=== PATIENT | female | born 1970 | race American Indian/Alaskan Native ===

== ENCOUNTER 2017-12-16 09:50 | Emergency (ER) | payer SELFPAY ==
[2017-12-16] MEDS ORDERED: NACL 0.9% 1000 ML 1,000 ML IV ONE (11:41)
[2017-12-16] MEDS ORDERED: MORPHINE IV ONE (11:41)
--- NOTE | 2017-12-16 11:45 | Emergency Department Report ---
Chief Complaint: Nausea/Vomiting/Diarrhea Stated Complaint: DIZZINES/VOMITING Time Seen by Provider: 12/16/17 11:13 - HPI History of Present Illness: 47-year-old -Serbian female presents to the emergency department with the complaint of nausea, vomiting, dizziness and elevated blood pressure. She says that her blood pressure this morning was about systolic 190. Most of the symptoms started last night. The patient also says that she has a history of sickle cell disease, not trait, and that she is having a pain crisis. She does not have any insurance and therefore says she does not have a primary care physician or any human resources compensation analyst. She has not taken anything for her symptoms prior to presentation. No recent travel or sick contacts at home. - ROS Review of Systems: Positive for nausea, vomiting, dizziness, body aches, cough Negative for fever, chest pain - Exam Vital Signs: Vital Signs 12/16/17 09:57 Temperature 97.6 F Pulse Rate 72 Respiratory 18 Rate Blood Pressure 162/101 O2 Sat by Pulse 100 Oximetry Physical Exam: Heart and lungs sounds are normal in auscultation. Patient is awake and alert in no acute distress. Cranial nerves II through XII grossly intact. MSE screening note: Focused history and physical exam performed. Due to findings the following was ordered: I have ordered a CBC, CMP, lipase, reticulocyte count. The patient will have a CT scan of the head without contrast. We'll place an IV and the patient will be given fluid and pain medication. ED Disposition for MSE Condition: Stable Referrals: PRIMARY CARE [Primary Care Provider] - 3-5 Days
[2017-12-16 12:12] LABS: Basophils % (Auto) 0.7 % (0.0-1.8); Eosinophils % (Auto) 0.4 % (0.0-4.3); Hematocrit 34.2 % (30.3-42.9); Lymphocytes # (Auto) 0.8 K/mm3 (1.2-5.4); Lymphocytes % (Auto) 11.2 % (13.4-35.0); Mean Corpuscular HGB Conc 35 % (30-34); Mean Corpuscular Hemoglobin 27 pg (28-32); Mean Corpuscular Volume 77 fl (79-97); Monocytes # (Auto) 0.3 K/mm3 (0.0-0.8); Monocytes % (Auto) 4.8 % (0.0-7.3); Platelet Count 128 K/mm3 (140-440); Red Blood Count 4.45 M/mm3 (3.65-5.03); Red Cell Distribution Width 18.9 % (13.2-15.2)
[2017-12-16 12:18] LABS: Alanine Aminotransferase 17 units/L (7-56); Albumin 4.8 g/dL (3.9-5); BUN/Creatinine Ratio 33; Blood Urea Nitrogen 13 mg/dL (7-17); Calcium 9.7 mg/dL (8.4-10.2); Hemolysis Index 16
--- NOTE | 2017-12-16 12:29 | Cat Scan Report ---
CT HEAD WITHOUT CONTRAST: HISTORY: Dizziness. TECHNIQUE: Sequential 2.5mm CT images. COMPARISON: none. FINDINGS: Cerebral Parenchyma: Within normal limits. Cerebellum: Within normal limits. Brainstem: Within normal limits. Ventricles: Normal. Sella: Normal. Extra-axial spaces: Normal. Basal Cisterns: Normal. Intracranial Hemorrhage: None. Midline Shift: None. Calvarium: Normal. Sinuses: Normal. Mastoid Air Cells: Normal. Visualized Orbits: Normal. IMPRESSION: Cranial CT scan within normal limits.
--- NOTE | 2017-12-16 13:32 | Emergency Department Report ---
ED N/V/D HPI - General Chief complaint: Nausea/Vomiting/Diarrhea Stated complaint: DIZZINES/VOMITING Time Seen by Provider: 12/16/17 11:13 Source: patient, EMS Mode of arrival: Wheelchair Limitations: No Limitations - History of Present Illness Initial comments: This is a 47-year-old female nontoxic, well nourished in appearance, no acute signs of distress presents to the ED with c/o of nausea and vomiting, dizziness , and high blood pressure. Patient describes vomiting as food content. Patient denies any abdominal pain, chest pain, short of breath, fever, chills, headache, stiff neck, numbness or tingling. Patient stated has history of sickle cell. Patient denies any diarrhea or constipation. Patient denies any recent travels. Patient denies any drug allergies. MD complaint: nausea, vomiting, other (dizziness) Description of Vomiting: food contents Associated Abdominal Pain: No Radiation: none Consistency: now resolved Improves with: none Worsens with: none Associated Symptoms: nausea/vomiting. denies: myalgias, chest pain, cough, diaphoresis, fever/chills, headaches, loss of appetite, malaise, rash, dysuria, shortness of breath, syncope, weakness - Related Data Previous Rx's Medication Instructions Recorded Last Taken Type Ondansetron [Zofran Odt] 4 mg PO Q8HR PRN #20 tab.rapdis 12/16/17 Unknown Rx amLODIPine [Norvasc] 5 mg PO DAILY #30 tab 12/16/17 Unknown Rx Allergies Allergy/AdvReac Type Severity Reaction Status Date / Time No Known Allergies Allergy Unverified 12/16/17 09:57 ED Review of Systems ROS: Stated complaint: DIZZINES/VOMITING Other details as noted in HPI Constitutional: denies: chills, fever Eyes: denies: eye pain, eye discharge, vision change ENT: denies: ear pain, throat pain Respiratory: denies: cough, shortness of breath, wheezing Cardiovascular: denies: chest pain, palpitations Endocrine: no symptoms reported Gastrointestinal: nausea, vomiting. denies: abdominal pain, diarrhea, constipation Genitourinary: denies: urgency, dysuria, discharge Musculoskeletal: denies: back pain, joint swelling, arthralgia Skin: denies: rash, lesions Neurological: denies: headache, weakness, paresthesias Psychiatric: denies: anxiety, depression Hematological/Lymphatic: denies: easy bleeding, easy bruising ED Past Medical Hx - Past Medical History Previous Medical History?: Yes Hx Hypertension: Yes Additional medical history: sickle cell trait - Social History Smoking Status: Never Smoker Substance Use Type: None - Medications Home Medications: Home Medications Medication Instructions Recorded Confirmed Last Taken Type Ondansetron [Zofran Odt] 4 mg PO Q8HR PRN #20 tab.rapdis 12/16/17 Unknown Rx amLODIPine [Norvasc] 5 mg PO DAILY #30 tab 12/16/17 Unknown Rx ED Physical Exam - General Limitations: No Limitations General appearance: alert, in no apparent distress - Head Head exam: Present: atraumatic, normocephalic - Eye Eye exam: Present: normal appearance Pupils: Present: normal accommodation - ENT ENT exam: Present: normal exam, mucous membranes moist - Neck Neck exam: Present: normal inspection, full ROM. Absent: tenderness, meningismus, lymphadenopathy - Respiratory Respiratory exam: Present: normal lung sounds bilaterally. Absent: respiratory distress, wheezes, rales, rhonchi, stridor, chest wall tenderness, accessory muscle use, decreased breath sounds, prolonged expiratory - Cardiovascular Cardiovascular Exam: Present: regular rate, normal rhythm, normal heart sounds. Absent: bradycardia, tachycardia, irregular rhythm, systolic murmur, diastolic murmur, rubs, gallop - GI/Abdominal GI/Abdominal exam: Present: soft, normal bowel sounds. Absent: distended, tenderness, guarding, rebound, rigid, diminished bowel sounds - Rectal Rectal exam: Present: deferred - Extremities Exam Extremities exam: Present: normal inspection, full ROM, normal capillary refill. Absent: tenderness - Back Exam Back exam: Present: normal inspection, full ROM - Neurological Exam Neurological exam: Present: alert, oriented X3, CN II-XII intact, normal gait - Psychiatric Psychiatric exam: Present: normal affect, normal mood - Skin Skin exam: Present: warm, dry, intact, normal color. Absent: rash ED Course Vital Signs 12/16/17 09:57 Temperature 97.6 F Pulse Rate 72 Respiratory 18 Rate Blood Pressure 162/101 O2 Sat by Pulse 100 Oximetry - Reevaluation(s) Reevaluation #1: 12/16/17 13:31 Patient is speaking in full sentences with no signs of distress noted. - Consultations Consultation #1: 12/16/17 13:31 Patient has been consulted with Dr. Shankar about patient history, physical exam, and labs/CT findings and examined and screened patient and agrees to ED plan of care and discharge plan of care. ED Medical Decision Making - Lab Data Result diagrams: 12/16/17 11:49 12/16/17 11:49 - Medical Decision Making This is a 47-year-old female that presents with nausea and vomiting and dizziness and hypertension. Patient is stable and was examined by me and Dr. Shankar. There is no abdominal tenderness. Patient stated that she used to take lisinopril but stopped taking it due to cough. Patient is requesting for another blood pressure medication with no cough side effect. I will start patient with Norvasc. Negative signs of symptoms of appendicitis. Labs obtained. CT of head/brain obtained and dictated by the radiologist within normal limits. Patient is notified of the report with no questions noted by the patient. Vital signs are stable prior to discharge. Patient received morphin and 1L Normal saline in the ED which patient stated symptoms has resovled and subsided. A by mouth challenge has been obtained and patient tolerated well with no nausea vomiting. Patient was also instructed to Follow- up with a primary care doctor in 3-5 days or if symptoms worsen and continue return to emergency room as soon as possible. At time of discharge, the patient does not seem toxic or ill in appearance. No acute signs of distress noted. Patient agrees to discharge treatment plan of care. No further questions noted by the patient. Critical care attestation.: If time is entered above; I have spent that time in minutes in the direct care of this critically ill patient, excluding procedure time. ED Disposition Clinical Impression: Dizziness Nausea & vomiting Qualifiers: Vomiting type: unspecified Vomiting Intractability: non-intractable Qualified Code(s): R11.2 - Nausea with vomiting, unspecified Hypertension Qualifiers: Hypertension type: unspecified Qualified Code(s): I10 - Essential (primary) hypertension Disposition: DC-01 TO HOME OR SELFCARE Is pt being admited?: No Does the pt Need Aspirin: No Condition: Stable Instructions: Hypertension (ED), Dizziness (ED), Acute Nausea and Vomiting (ED) Additional Instructions: Follow-up with a primary care doctor in 3-5 days or if symptoms worsen and continue return to emergency room as soon as possible. Keep a daily diary of your blood pressure and present it to primary care doctor. Prescriptions: amLODIPine [Norvasc] 5 mg PO DAILY #30 tab Ondansetron [Zofran Odt] 4 mg PO Q8HR PRN #20 tab.rapdis PRN Reason: Nausea Referrals: PRIMARY CARE,MD [Primary Care Provider] - 3-5 Days RICH BROWN MD [Staff Physician] - 3-5 Days [facility] [Outside] - 3-5 Days [facility] [Outside] - 3-5 Days Forms: Work/School Release Form(ED)
[2017-12-16 13:48] VITALS: BP 158/94
== END 2017-12-16 13:47 | disposition home or self-care (01) ==
LOC: ED 09:50
DX: R11.2 Nausea with vomiting, unspecified (principal); R42 Dizziness and giddiness; I10 Essential (primary) hypertension; D57.3 Sickle-cell trait
CPT/HCPCS: 36415; 70450; 80053; 82962; 83690; 85025; 85045; 96360; 99284; J7030

== ENCOUNTER 2018-01-21 10:39 | Emergency (ER) | payer OTHER ==
[2018-01-21 10:52] VITALS: BP 159/82
--- NOTE | 2018-01-21 13:17 | Emergency Department Report ---
ED Recheck HPI - General Chief Complaint: Medical Clearance Stated Complaint: MEDICATION REFILL Time Seen by Provider: 01/21/18 11:51 Source: patient Mode of arrival: Ambulatory Limitations: No Limitations - History of Present Illness Initial Comments: Patient reported that she would like to have her blood pressure medication refill as she does not have a primary care doctor as yet. The last time she was here was on 12/16/2017 for refill of Norvasc. She is not having any symptoms at present. Denies chest pain, shortness of breath, headache, nausea vomiting, blurred vision or dizziness. Pain is 0-10 she has her prescription bottle with her. MD Complaint: medication refill request Initial Visit For: other (medication refill) Returns Today for: request for prescription Symptoms Since Prior Visit: no new symptoms Context: ran out of medication Associated Symptoms: none Treatments Prior to Arrival: other medications - Related Data Previous Rx's Medication Instructions Recorded Last Taken Type Ondansetron [Zofran Odt] 4 mg PO Q8HR PRN #20 tab.rapdis 12/16/17 Unknown Rx amLODIPine [Norvasc] 5 mg PO DAILY #30 tab 01/21/18 Unknown Rx Allergies Allergy/AdvReac Type Severity Reaction Status Date / Time No Known Allergies Allergy Unverified 12/16/17 09:57 ED Review of Systems ROS: Stated complaint: MEDICATION REFILL Other details as noted in HPI Constitutional: denies: chills, fever Eyes: denies: eye pain, vision change Respiratory: denies: cough, shortness of breath, SOB with exertion, SOB at rest , wheezing Cardiovascular: denies: chest pain, palpitations, edema, syncope Musculoskeletal: denies: back pain, arthralgia Skin: denies: rash, lesions Neurological: denies: headache, weakness, numbness, paresthesias, confusion, abnormal gait, vertigo ED Past Medical Hx - Past Medical History Previous Medical History?: Yes Hx Hypertension: Yes Additional medical history: sickle cell trait - Surgical History Past Surgical History?: No - Family History Family history: hypertension - Social History Smoking Status: Never Smoker Substance Use Type: None - Medications Home Medications: Home Medications Medication Instructions Recorded Confirmed Last Taken Type Ondansetron [Zofran Odt] 4 mg PO Q8HR PRN #20 tab.rapdis 12/16/17 Unknown Rx amLODIPine [Norvasc] 5 mg PO DAILY #30 tab 01/21/18 Unknown Rx ED Physical Exam - General Limitations: No Limitations General appearance: alert, in no apparent distress - Head Head exam: Present: atraumatic, normocephalic, normal inspection - Eye Eye exam: Present: normal appearance, PERRL, EOMI Pupils: Present: normal accommodation - ENT ENT exam: Present: normal exam, normal orophraynx, mucous membranes moist - Neck Neck exam: Present: normal inspection, full ROM. Absent: tenderness - Respiratory Respiratory exam: Present: normal lung sounds bilaterally. Absent: respiratory distress, chest wall tenderness - Cardiovascular Cardiovascular Exam: Present: regular rate, normal rhythm, normal heart sounds. Absent: systolic murmur, diastolic murmur - Extremities Exam Extremities exam: Present: normal inspection, full ROM, normal capillary refill , other (No cce. + 2 pulses in all extremities, no neurovascular compromise). Absent: tenderness, pedal edema, joint swelling, calf tenderness - Neurological Exam Neurological exam: Present: alert, oriented X3, normal gait - Psychiatric Psychiatric exam: Present: normal affect, normal mood - Skin Skin exam: Present: warm, dry, intact, normal color. Absent: rash ED Course Vital Signs 01/21/18 10:48 Temperature 98.7 F Pulse Rate 81 Respiratory 18 Rate Blood Pressure 159/82 O2 Sat by Pulse 100 Oximetry - Reevaluation(s) Reevaluation #1: 01/21/18 13:18 Patient stable throughout ED course ED Recheck MDM - Medical Decision Making This is a 47-year-old female here report that she run out of her Norvasc and she just got her Medicaid and she has not been able to primary care doctor. Patient was here on 12/16/2017 and received a refill. She did not follow-up because she says she did not have any insurance. Assessment/plan 1: Encounter for medication refill-patient given prescription for Norvasc. I discussed with her that she will not be able to get medication refill here as she needs a primary care physician to monitor her chronic medical problem. I told her now that she has access to healthcare she needs to call [facility] and schedule an appointment. She is asymptotic at present. Patient discharged home in stable condition, vital signs stable, she is afebrile and she is in no distress and pain free. She was given prescription for Norvasc and told to follow up with her primary care physician to call today to schedule an appointment for management of her chronic medical problem and she voiced understanding. Critical care attestation.: If time is entered above; I have spent that time in minutes in the direct care of this critically ill patient, excluding procedure time. ED Disposition Clinical Impression: Encounter for medication refill Disposition: - TO HOME OR SELFCARE Is pt being admited?: No Does the pt Need Aspirin: No Condition: Stable Instructions: Hypertension (ED), Low Sodium Diet (ED), DASH Eating Plan (ED) Additional Instructions: Please follow up with the primary care physician in 3-5 days Take Medication as prescribed Prescriptions: amLODIPine [Norvasc] 5 mg PO DAILY #30 tab Referrals: [facility] [Outside] - 3-5 Days Forms: Work/School Release Form(ED)
== END 2018-01-21 13:32 | disposition home or self-care (01) ==
LOC: ED 10:39
DX: I10 Essential (primary) hypertension (principal); Z76.0 Encounter for issue of repeat prescription; D57.3 Sickle-cell trait
CPT/HCPCS: 99282